=== PATIENT | female | born 1940 | race Caucasian/White ===

== ENCOUNTER 2020-03-01 11:46 | Outpatient (REF) | payer MEDICARE, OTHER, SELFPAY ==
[2020-03-01 12:45] LABS: Aspartate Amino Transferase 15 U/L (5-31); Cholesterol 201 mg/dL; HDL Cholesterol 47 mg/dL; LDL Cholesterol Calculated 133 mg/dl; Triglycerides 109 mg/dL
== END 2020-03-01 11:47 | disposition home or self-care (01) ==
LOC: HO.HVNA 11:46
PROVIDERS: Visit Provider Internal Medicine Interventional Cardiology
DX: E78.5 Hyperlipidemia, unspecified (principal)
CPT/HCPCS: 80061; 84450

== ENCOUNTER 2020-05-18 09:26 | Inpatient (IN) | payer MEDICARE, OTHER, SELFPAY ==
[2020-05-18] VITALS (8 sets, daily range): BP systolic 111–142; BP diastolic 53–82; PULSE 78–91; RESP 16–24; TEMP 36.7–37.1; O2SAT 88–98
--- NOTE | 2020-05-18 09:35 | ECG_ITS ---
Test Reason : DIFFICULTY BREATHING Blood Pressure : / mmHG Vent. Rate : 101 BPM Atrial Rate : 101 BPM P-R Int : 144 ms QRS Dur : 084 ms QT Int : 354 ms P-R-T Axes : 039 -66 084 degrees QTc Int : 459 ms Sinus tachycardia Possible Left atrial enlargement Left axis deviation Inferior infarct , age undetermined Anteroseptal infarct (cited on or before 28-OCT-2018) Abnormal ECG When compared with ECG of 10-FEB-2020 02:58, Nonspecific T wave abnormality, worse in Lateral leads Referred By: Vicky Delaney Electronically Signed By:Arnie Noel
--- NOTE | 2020-05-18 09:38 | ED_ITS ---
HPI - SOB/Dyspnea General Chief Complaint: Dyspnea Stated Complaint: diff breathing x1 week Time Seen by Provider: 05/18/20 09:34 Source: patient and EMS Mode of arrival: EMS Limitations: no limitations History of Present Illness HPI Narrative: 81 yo female with COPD, sp AVR with TAVR, HTN - here with 1 week of shortness of breath following a fall no trauma - became dizzy EMS found 89% on RA by EMS MD elicited complaint: shortness of breath and cough Pertinent past history: COPD Onset (ago): week(s) (1) Context: trauma/injury (after fall but no reported injuries and no head strike) Timing: constant Severity: moderate Exacerbating factors: exertion (cannot walk to her bathroom) Relieving factors: oxygen Known history of: COPD Associated symptoms: denies other symptoms Treatment prior to arrival: oxygen Related Data Home Medications Medication Instructions Recorded Confirmed amlodipine 2.5 mg PO DAILY 05/18/20 05/18/20 aspirin 81 mg PO DAILY 05/18/20 05/18/20 calcium carbonate-vitamin D3 1 tab PO DAILY 05/18/20 05/18/20 [Calcium 500 + D] ezetimibe 10 mg PO DAILY 05/18/20 05/18/20 levothyroxine 100 mcg PO DAILY 05/18/20 05/18/20 lorazepam 1 mg PO BEDTIME PRN 05/18/20 05/18/20 metoprolol succinate 50 mg PO DAILY 05/18/20 05/18/20 sertraline 200 mg PO QAM 05/18/20 05/18/20 umeclidinium-vilanterol [Anoro 1 puff INHALATION DAILY 05/18/20 05/18/20 Ellipta] Allergies Allergy/AdvReac Type Severity Reaction Status Date / Time No Known Allergies Allergy Verified 05/18/20 09:46 [No Known Allergies*] Review of Systems Review of Systems: Constitutional : No Fever, No Chills ENT/Mouth : No sore throat, No Rhinorrhea, No Swallowing Difficulty Eyes: No Eye Pain, No Swelling, No Redness Cardiovascular : No Chest Pain, positive SOB, No Orthopnea, no Edema Respiratory : No Cough, No Sputum, No Wheezing, positive dyspnea Gastrointestinal : No Nausea, No Vomiting, No Diarrhea, No abdominal Pain, No Hematochezia, No Melena Genitourinary : No Dysuria, No Urinary Frequency, No Hematuria Musculoskeletal : No joint pain, No Myalgias Skin : No Skin Lesions, No rash Neuro : pos Weakness, No Numbness, No Dizziness, No Headache Psych : No Anxiety/Panic, No Depression Heme/Lymph: No Bruising, No Lymphadenopathy Endocrine : No Polyuria, No Polydipsia All other systems reviewed and are negative [facility] Past Medical History Attestation statement: The following information was validated with the patient. Medical History (Updated 05/18/20 @ 12:17 by Vicky Delaney DO) COPD (chronic obstructive pulmonary disease) HTN (hypertension) Hypothyroidism Surgical History (Updated 05/18/20 @ 09:42 by Vicky Delaney DO) S/P AVR Social History Social History (Updated 05/18/20 @ 09:43 by Vicky Delaney DO) Smoking Status: Former smoker Use of substances other than those prescribed or required for medical reasons: No Advance Directives: No Advance Directives Information Provided: No Physical Exam Vital Signs: Vital Signs: Last Vital Signs Temp 98.7 F 05/18/20 09:41 Pulse 81 05/18/20 11:04 Resp 20 05/18/20 09:41 BP 119/60 05/18/20 11:04 Pulse Ox 97 05/18/20 11:04 Body Mass Index 30.0 Appearance: Alert. Oriented X3. Mild acute distress. Eyes: Pupils equal, round and reactive to light. ENT: Pharynx normal. Neck: Normal inspection. Neck supple. CVS: Normal heart rate and rhythm. Pulses normal. Respiratory: Mild respiratory distress tachypnea and retractions. Breath sounds diminished throughout scant end exp wheezes Abdomen: Soft and nontender. Skin: Skin warm and dry. Normal skin color. Normal skin turgor. Extremities: No lower extremity edema. No calf ttp Neuro: Oriented X 3. No motor deficit. No sensory deficit. Course Course Course Narrative: ddimer elevated CTA PE ordered already treated for COPD and bronchitis, still desats to 89% off O2, will need admission for further management MDM - SOB/Dyspnea MDM Narrative Medical decision making narrative: 80 yo female who notes last week she became dizzy and fell to the ground did not hit head or have LOC denies rib pain or trauma but notes since then she hasn't felt well and c/o shortness of breath and cough - will need labs, cultures, EKG, neb treatment, IV steroids, CXR, ddimer - if positive possible CTA, she is 89% on RA and does not use home O2, planned admit likely, start empiric antibiotics for COPD exacerbation Lab Data Result diagrams: 05/18/20 10:25 05/18/20 10:25 Labs: Lab Results 05/18/20 05/18/20 05/18/20 Range/Units 09:54 10:25 10:25 WBC 6.7 (4.8-10.8) X10*3/uL RBC 4.51 (4.20-5.50) X10*6/uL Hgb 12.1 (12.0-16.0) g/dl Hct 38.3 (37-47) % MCV 84.9 (80-98) fL MCH 26.8 L (27.0-33.0) pg MCHC 31.6 (31.0-35.0) g/dl RDW 14.4 (11.0-16.0) % Plt Count 144 L (160-400) X10*3/uL MPV 10.8 (9.4-12.3) fL Immature Gran % (Auto) 0.3 (0.0-0.4) % Neut % (Auto) 82.1 H (45-73) % Lymph % (Auto) 13.4 L (20-40) % [place] % (Auto) 4.2 (2-11) % Eos % (Auto) 0.0 (0-4) % Baso % (Auto) 0.0 (0-2) % Lymph # (Auto) 0.9 L (1.2-4.9) X10*3/uL [place] # (Auto) 0.3 (0.1-1.2) X10*3/uL Eos # (Auto) 0.0 (0.0-0.4) X10*3/uL Baso # (Auto) 0.0 (0.0-0.2) X10*3/uL Abs Immat Gran (auto) 0.02 (0.00-0.03) X10*3/uL Absolute Neuts (auto) 5.5 (2.0-8.3) X10*3/uL Absolute Nucleated RBC 0.000 (0.0-0.012) X10*3/uL Nucleated RBC % (auto) 0.0 (0.0-0.2) /100WBC PT 12.8 (10.8-13.0) SEC INR 1.1 (0.9-1.1) APTT 30.7 (24.1-38.0) SEC D-Dimer 440 NG/ML VBG pH (7.32-7.43) VBG pCO2 mmhg VBG pO2 mmhg VBG HCO3 mmol/L VBG O2 Saturation % VBG Base Excess mmol/L Sodium (135-145) mmol/L Potassium (3.3-5.1) mmol/l Chloride (96-108) mmol/L Carbon Dioxide (22-29) mmol/L Anion Gap (12-20) BUN (9-16) mg/dL Creatinine (0.5-1.4) mg/dL Estim Creat Clear Calc Estimated GFR Random Glucose (60-115) mg/dL Lactic Acid (0.5-2.0) mmol/L Calcium (8.4-10.2) mg/dL Magnesium (1.6-2.6) mg/dL Ferritin (10-250) ng/mL Total Bilirubin (0.0-1.0) mg/dL Direct Bilirubin (0.0-0.5) mg/dL AST (5-31) U/L ALT (0-31) U/L Alkaline Phosphatase (39-117) U/L Lactate Dehydrogenase (122-220) U/L Troponin I High Sens (<3.5-17.0) ng/L B-Natriuretic Peptide (<100) pg/mL Total Protein (6.5-8.0) g/dL Albumin (3.5-5.0) g/dL Lipase (8-78) U/L Procalcitonin ng/mL Coronavirus (PCR) NEGATIVE (Negative) Influenza Type A (PCR) NEGATIVE (Negative) Influenza Type B (PCR) NEGATIVE (Negative) RSV RNA Qual (PCR) NEGATIVE (Negative) 05/18/20 05/18/20 05/18/20 Range/Units 10:25 10:25 10:25 WBC (4.8-10.8) X10*3/uL RBC (4.20-5.50) X10*6/uL Hgb (12.0-16.0) g/dl Hct (37-47) % MCV (80-98) fL MCH (27.0-33.0) pg MCHC (31.0-35.0) g/dl RDW (11.0-16.0) % Plt Count (160-400) X10*3/uL MPV (9.4-12.3) fL Immature Gran % (Auto) (0.0-0.4) % Neut % (Auto) (45-73) % Lymph % (Auto) (20-40) % [place] % (Auto) (2-11) % Eos % (Auto) (0-4) % Baso % (Auto) (0-2) % Lymph # (Auto) (1.2-4.9) X10*3/uL [place] # (Auto) (0.1-1.2) X10*3/uL Eos # (Auto) (0.0-0.4) X10*3/uL Baso # (Auto) (0.0-0.2) X10*3/uL Abs Immat Gran (auto) (0.00-0.03) X10*3/uL Absolute Neuts (auto) (2.0-8.3) X10*3/uL Absolute Nucleated RBC (0.0-0.012) X10*3/uL Nucleated RBC % (auto) (0.0-0.2) /100WBC PT (10.8-13.0) SEC INR (0.9-1.1) APTT (24.1-38.0) SEC D-Dimer NG/ML VBG pH (7.32-7.43) VBG pCO2 mmhg VBG pO2 mmhg VBG HCO3 mmol/L VBG O2 Saturation % VBG Base Excess mmol/L Sodium 140 (135-145) mmol/L Potassium 4.0 (3.3-5.1) mmol/l Chloride 96 (96-108) mmol/L Carbon Dioxide 34 H (22-29) mmol/L Anion Gap 14 (12-20) BUN 19 H (9-16) mg/dL Creatinine 1.05 (0.5-1.4) mg/dL Estim Creat Clear Calc 45.0 Estimated GFR 51 Random Glucose 122 H (60-115) mg/dL Lactic Acid 1.0 (0.5-2.0) mmol/L Calcium 8.4 (8.4-10.2) mg/dL Magnesium 2.0 (1.6-2.6) mg/dL Ferritin 94 (10-250) ng/mL Total Bilirubin 0.6 (0.0-1.0) mg/dL Direct Bilirubin 0.2 (0.0-0.5) mg/dL AST 12 (5-31) U/L ALT 8 (0-31) U/L Alkaline Phosphatase 66 (39-117) U/L Lactate Dehydrogenase 197 (122-220) U/L Troponin I High Sens 24.2 H (<3.5-17.0) ng/L B-Natriuretic Peptide 705 H (<100) pg/mL Total Protein 6.5 (6.5-8.0) g/dL Albumin 3.9 (3.5-5.0) g/dL Lipase 21 (8-78) U/L Procalcitonin ng/mL Coronavirus (PCR) (Negative) Influenza Type A (PCR) (Negative) Influenza Type B (PCR) (Negative) RSV RNA Qual (PCR) (Negative) 05/18/20 05/18/20 Range/Units 10:25 10:25 WBC (4.8-10.8) X10*3/uL RBC (4.20-5.50) X10*6/uL Hgb (12.0-16.0) g/dl Hct (37-47) % MCV (80-98) fL MCH (27.0-33.0) pg MCHC (31.0-35.0) g/dl RDW (11.0-16.0) % Plt Count (160-400) X10*3/uL MPV (9.4-12.3) fL Immature Gran % (Auto) (0.0-0.4) % Neut % (Auto) (45-73) % Lymph % (Auto) (20-40) % [place] % (Auto) (2-11) % Eos % (Auto) (0-4) % Baso % (Auto) (0-2) % Lymph # (Auto) (1.2-4.9) X10*3/uL [place] # (Auto) (0.1-1.2) X10*3/uL Eos # (Auto) (0.0-0.4) X10*3/uL Baso # (Auto) (0.0-0.2) X10*3/uL Abs Immat Gran (auto) (0.00-0.03) X10*3/uL Absolute Neuts (auto) (2.0-8.3) X10*3/uL Absolute Nucleated RBC (0.0-0.012) X10*3/uL Nucleated RBC % (auto) (0.0-0.2) /100WBC PT (10.8-13.0) SEC INR (0.9-1.1) APTT (24.1-38.0) SEC D-Dimer NG/ML VBG pH 7.32 (7.32-7.43) VBG pCO2 65 mmhg VBG pO2 84 mmhg VBG HCO3 33 mmol/L VBG O2 Saturation 96.0 % VBG Base Excess 5.1 mmol/L Sodium (135-145) mmol/L Potassium (3.3-5.1) mmol/l Chloride (96-108) mmol/L Carbon Dioxide (22-29) mmol/L Anion Gap (12-20) BUN (9-16) mg/dL Creatinine (0.5-1.4) mg/dL Estim Creat Clear Calc Estimated GFR Random Glucose (60-115) mg/dL Lactic Acid (0.5-2.0) mmol/L Calcium (8.4-10.2) mg/dL Magnesium (1.6-2.6) mg/dL Ferritin (10-250) ng/mL Total Bilirubin (0.0-1.0) mg/dL Direct Bilirubin (0.0-0.5) mg/dL AST (5-31) U/L ALT (0-31) U/L Alkaline Phosphatase (39-117) U/L Lactate Dehydrogenase (122-220) U/L Troponin I High Sens (<3.5-17.0) ng/L B-Natriuretic Peptide (<100) pg/mL Total Protein (6.5-8.0) g/dL Albumin (3.5-5.0) g/dL Lipase (8-78) U/L Procalcitonin 0.04 ng/mL Coronavirus (PCR) (Negative) Influenza Type A (PCR) (Negative) Influenza Type B (PCR) (Negative) RSV RNA Qual (PCR) (Negative) ECG Data Attestation: I personally reviewed and interpreted this ECG as follows: ECG interpretation date: 05/18/20 ECG interpretation time: 10:42 Interpretation: Rate: 101 Rhythm: sinus tachycardia Benoit: left Normal P waves. Normal SIL. Normal QRS complex. ST T wave : nonspecific, no LILO qTC: normal prior studies: no acute ischemia The study has been interpreted contemporaneously by me. . Discharge Plan Discharge Clinical Impression: Acute exacerbation of chronic obstructive airways disease, Bronchitis, Hypoxia Patient Disposition: Admitted As Inpatient Prescriptions: No Action metoprolol succinate 50 mg tablet extended release 24 hr 50 mg PO DAILY RF: 0 sertraline 100 mg tablet 200 mg PO QAM RF: 0 amlodipine 2.5 mg tablet 2.5 mg PO DAILY RF: 0 levothyroxine 100 mcg tablet 100 mcg PO DAILY RF: 0 lorazepam 1 mg tablet 1 mg PO BEDTIME PRN (Reason: Sleep) RF: 0 ezetimibe 10 mg tablet 10 mg PO DAILY RF: 0 Anoro Ellipta 62.5-25 mcg/actuation blister with device 1 puff inhalation DAILY RF: 0 aspirin 81 mg Tablet,Chewable 81 mg PO DAILY RF: 0 calcium carbonate-vitamin D3 [Calcium 500 + D] 500 mg(1,250mg) -400 unit Tablet,Chewable 1 tab PO DAILY RF: 0
--- NOTE | 2020-05-18 09:39 | XR_ITS ---
EXAMINATION: XR CHEST CLINICAL INFORMATION: Dyspnea. COMPARISON: Chest 02/10/2020. TECHNIQUE: Frontal view of the chest was obtained. FINDINGS: There is increase interstitial markings in both lungs with abutment bandlike atelectasis right lower lobe. There is aortic valve stent noted. The heart size and vascularity is normal. No gross bony abnormality. XR/XR chest 1V IMPRESSION: Bilateral increase interstitial markings suggestive of interstitial pneumonitis, less likely edema. Bandlike atelectasis in right lower lobe.
[2020-05-18] MEDS: Albuterol Sulfate (0.083%) 2.5 MG/3 ML VIAL.NEB 5 MG INHALE (09:49)
[2020-05-18 10:34] LABS: MANUAL DIFF FLAG NO
[2020-05-18 10:38] LABS: HCO3 VBG 33 mmol/L; PCO2 VBG 65 mmhg; PO2 VBG 84 mmhg; pH VBG 7.32 (7.32-7.43)
[2020-05-18 10:39] LABS: Base Excess VBG 5.1 mmol/L; Blood Gas Serial # 5414
[2020-05-18 10:42] LABS: Influenza A PCR NEGATIVE (Negative); Influenza B PCR NEGATIVE (Negative); Resp Syncy Virus RNA Qual PCR NEGATIVE (Negative); SARS COV2 PCR INHOUSE NEGATIVE (Negative)
[2020-05-18 10:43] LABS: INTERNATIONAL NORM RATIO 1.1 (0.9-1.1); Prothrombin Time 12.8 SEC (10.8-13.0)
[2020-05-18 10:46] LABS: D Dimer 440 NG/ML; Partial Thromboplastin Time 30.7 SEC (24.1-38.0)
[2020-05-18 10:49] LABS: Hematocrit 38.3 % (37-47); Hemoglobin 12.1 g/dl (12.0-16.0); Imm Gran Abs Auto 0.02 X10*3/uL (0.00-0.03); Imm Gran Pct Auto 0.3 % (0.0-0.4); Lymphocytes Absolute Auto 0.9 X10*3/uL (1.2-4.9); Lymphocytes Percent Auto 13.4 % (20-40); Mean Corpuscular HGB Conc 31.6 g/dl (31.0-35.0); Mean Corpuscular Hemoglobin 26.8 pg (27.0-33.0); Mean Corpuscular Volume 84.9 fL (80-98); Mean Platelet Volume 10.8 fL (9.4-12.3); Monocytes Absolute Auto 0.3 X10*3/uL (0.1-1.2); Monocytes Percent Auto 4.2 % (2-11); Neutrophils Absolute Auto 5.5 X10*3/uL (2.0-8.3); Neutrophils Percent Auto 82.1 % (45-73); Platelet Count 144 X10*3/uL (160-400); Red Blood Count 4.51 X10*6/uL (4.20-5.50); Red Cell Distribution Width 14.4 % (11.0-16.0); White Blood Count 6.7 X10*3/uL (4.8-10.8)
--- NOTE | 2020-05-18 10:54 | CT_ITS ---
EXAMINATION: CT ANGIOGRAM OF THE CHEST WITH AND WITHOUT CONTRAST (CT PULMONARY ANGIOGRAM FOR PE) CLINICAL INFORMATION: Reason for Exam dyspnea elevated ddimer COMPARISON: Previous chest x-ray most recent from earlier today and chest CTA October 2018 TECHNIQUE: Prior to contrast administration, noncontrast localization images were obtained. Subsequently, multidetector volumetric imaging was performed from the thoracic inlet to below the diaphragms following the administration of 65 mL Omnipaque 350 intravenous contrast. No contrast reaction reported Sagittal, coronal, and MIP oblique sagittal reformatted images were obtained on the CT workstation, uploaded to PACS, and reviewed. This CT examination was performed using dose optimization techniques as appropriate, variously including the following: *Automated exposure control *Adjustment of mA and/or kV according to patient size (this includes techniques or standardized protocols for targeted exams where dose is matched to indication/reason for exam; i.e. extremities or head) *Use of iterative reconstruction technique Total exam dose-length product 268 mGy-cm FINDINGS: QUALITY OF STUDY/CONTRAST BOLUS: Satisfactory. PULMONARY ARTERIES: No central or segmental pulmonary emboli. THORACIC AORTA: No aneurysm or dissection. LUNG: There is evidence of mild centrilobular emphysema. There multiple small 1-2 mm upper lobe or a GDS or semisolid nodules area this may represent airways disease, respiratory bronchiolitis. Differential would include hypersensitivity pneumonitis or changes from old granulomatous disease. There is a 5 mm groundglass attenuation right upper lobe nodule axial image 163 series 8. This is unchanged from 2019 exam. Mild bilateral lower lobe bronchiectasis and bronchial wall thickening. There is some bronchial soft tissue opacification or mucus plugging seen in the right lower lobe. There is right lower lobe atelectasis or small infiltrate in the posterior basal right lower lobe. There is minimal subsegmental atelectasis in the posterior basal left lower lobe. PLEURA: No pleural effusion or pneumothorax. MEDIASTINUM: Upper normal heart size. Aortic valve stent graft. Mild coronary artery calcification. No pericardial effusion. Normal caliber thoracic aorta. No hilar or mediastinal lymphadenopathy. No evidence of septal bowing or right heart strain. Small calcified right thyroid nodules. CHEST WALL/AXILLA: No axillary or internal mammary lymphadenopathy. OSSEOUS STRUCTURES: There is a mild T7 vertebral body compression fracture that appears unchanged. UPPER ABDOMEN: The spleen is not completely imaged but may be prominent. No reflux of contrast into the hepatic veins to suggest elevated right heart pressures. CT/CT angio chest PE protocol IMPRESSION: No evidence of pulmonary embolism. Mild emphysema. Stable 5 mm groundglass attenuation right upper lobe nodule. Bilateral lower lobe bronchiectasis and bronchial wall thickening and some bronchial soft tissue opacification or mucus plugging in the right lower lobe. Right lower lobe atelectasis/small infiltrate. Aortic valve stent graft and slightly enlarged heart and coronary artery calcification. VTE: negative
[2020-05-18] MEDS: methylPREDNISolone Sod Succ/PF 125 MG/2 ML VIAL 60 MG IVPUSH (10:57)
[2020-05-18] MEDS: Doxycycline Hyclate 100 MG in 0.9 % Sodium Chloride 250 ML 166.67 MG IV (10:58)
[2020-05-18] MEDS: cefTRIAXone sodium 1 GM in 0.9 % Sodium Chloride 50 ML IV (10:58)
[2020-05-18 11:00] LABS: Alanine Aminotransferase 8 U/L (0-31); Albumin Level 3.9 g/dL (3.5-5.0); Alkaline Phosphatase 66 U/L (39-117); Anion Gap 14 (12-20); Aspartate Amino Transferase 12 U/L (5-31); Bilirubin Direct 0.2 mg/dL (0.0-0.5); Bilirubin Total 0.6 mg/dL (0.0-1.0); Blood Urea Nitrogen 19 mg/dL (9-16); Calcium 8.4 mg/dL (8.4-10.2); Carbon Dioxide 34 mmol/L (22-29); Chloride 96 mmol/L (96-108); Estimated Glomerular Filt Rate 51; Glucose Random 122 mg/dL (60-115); Lactate Dehydrogenase 197 U/L (122-220); Lipase 21 U/L (8-78); Sodium 140 mmol/L (135-145); Total Protein 6.5 g/dL (6.5-8.0)
--- NOTE | 2020-05-18 11:03 | PC.NURSE ---
MEDICATED PER ORDERS AFTER LABS AND BC X 2. VITALS UPDATED
[2020-05-18 11:08] LABS: B Type Natriuretic Peptide 705 pg/mL (<100); Troponin-I High Sensitivity 24.2 ng/L (<3.5-17.0)
[2020-05-18 11:20] LABS: Ferritin 94 ng/mL (10-250)
[2020-05-18 11:27] LABS: Procalcitonin 0.04 ng/mL
[2020-05-18] MEDS: iohexoL 350 MG/ML 100 ML INFUS..BTL IV (11:49)
[2020-05-18] MEDS: Furosemide 20 MG/2 ML VIAL IVPUSH (12:19)
--- NOTE | 2020-05-18 12:20 | P.HPHOSP_ITS ---
History of Present Illness Date of Service: 05/18/20 <Sonia Anderson NP - Last Filed: 05/18/20 13:17> Chief Complaint: Shortness of breath <Sonia Anderson NP - Last Filed: 05/18/20 13:17> 80 year old women presenting with worsening shortness of breath over the last several days. Mostly with exertion. She has COPD and a history of AVR. She reported That she took a fall on new s [place]. And since then she has had increased shortness of breath especially with exertion. She denied recent illness, fever, chills, nausea, vomiting, sick contacts. She does not have any history of congestive heart failure. BNP was noted to be elevated at 705. Chest CTA showing bronchiectases. Upon arrival apparently her oxygen saturation was 89% on room air. This did improve with oxygen therapy. In the ER, she was given Solu-Medrol, albuterol, ceftriaxone, doxycycline, IV Lasix. She will be admitted for further management and treatment of acute CHF. <Sonia Anderson NP - Last Filed: 05/18/20 13:17> Review of Systems Review of Systems: Denies any recent fever chills or decrease in appetite respiratory See HPI cardiovascular is adjustment of any PND or edema gastrointestinal denies any dysphagia abdominal pain nausea vomiting or diarrhea genitourinary denies any dysuria frequency or hematuria musculoskeletal denies any joint pain or swelling neuropsych denies any weakness or seizures all other systems reviewed are negative <Sonia Anderson NP - Last Filed: 05/18/20 13:17> [facility] Medical History: Medical History (Updated 05/28/20 @ 00:00 by Georgina Castaneda) COPD (chronic obstructive pulmonary disease) HTN (hypertension) Hypothyroidism <Sonia Anderson NP - Last Filed: 05/18/20 13:17> Pertinent family history: No cardiac disease <Sonia Anderson NP - Last Filed: 05/18/20 13:17> Surgical History: Surgical History (Updated 05/18/20 @ 12:22 by Sonia Anderson NP) S/P AVR <Sonia Anderson NP - Last Filed: 05/18/20 13:17> Social History: Social History (Updated 05/18/20 @ 09:43 by Vicky Delaney DO) Household Members: Family Housing: House Alcohol intake: never Smoking Status: Former smoker Second Hand Smoke Exposure: No service: No Current occupational status: retired <Sonia Anderson NP - Last Filed: 05/18/20 13:17> Meds Allergies/Adverse reactions: Allergies Allergy/AdvReac Type Severity Reaction Status Date / Time No Known Allergies Allergy Verified 05/18/20 09:46 [No Known Allergies*] <Sonia Anderson NP - Last Filed: 05/18/20 13:17> Home medications: Home Medications Medication Instructions Recorded Confirmed Type Anoro Ellipta 1 puff INHALATION DAILY 05/18/20 05/18/20 History amlodipine 2.5 mg PO DAILY 05/18/20 05/18/20 History aspirin 81 mg PO DAILY 05/18/20 05/18/20 History calcium carbonate-vitamin D3 1 tab PO DAILY 05/18/20 05/18/20 History [Calcium 500 + D] ezetimibe 10 mg PO DAILY 05/18/20 05/18/20 History levothyroxine 100 mcg PO DAILY 05/18/20 05/18/20 History lorazepam 1 mg PO BEDTIME PRN 05/18/20 05/18/20 History metoprolol succinate 50 mg PO DAILY 05/18/20 05/18/20 History sertraline 200 mg PO QAM 05/18/20 05/18/20 History <Sonia Anderson NP - Last Filed: 05/18/20 13:17> Physical Exam Vital Signs and Narrative: Vital Signs: Last Vital Signs Temp 98.7 F 05/18/20 09:41 Pulse 81 05/18/20 11:04 Resp 20 05/18/20 09:41 BP 119/60 05/18/20 11:04 Pulse Ox 97 05/18/20 11:04 Body Mass Index 30.0 <Sonia Anderson NP - Last Filed: 05/18/20 13:17> Appearing in no acute distress head is normocephalic atraumatic eyes pupils are PERRLA sclera is anicteric mouth throat mucous membranes are intact and moist neck is supple no lymphadenopathy, no JVD noted lung sounds some rales at the bases heart regular rate rhythm, clear S1, S2, +1 pitting edema positive bowel sounds, abdomen is soft, nontender neuro patient is alert x3, no focal deficits <Sonia Anderson NP - Last Filed: 05/18/20 13:17> Results Labs CBC and Chem 7: : 05/19/20 05:27 05/20/20 11:14 <Sonia Anderson NP - Last Filed: 05/18/20 13:17> Labs: Laboratory Results - last 24 hr 05/18/20 05/18/20 05/18/20 09:54 10:25 10:25 MCV 84.9 MCH 26.8 L MCHC 31.6 RDW 14.4 Plt Count 144 L MPV 10.8 Immature Gran % (Auto) 0.3 Neut % (Auto) 82.1 H Lymph % (Auto) 13.4 L [place] % (Auto) 4.2 Eos % (Auto) 0.0 Baso % (Auto) 0.0 Lymph # (Auto) 0.9 L [place] # (Auto) 0.3 Eos # (Auto) 0.0 Baso # (Auto) 0.0 Abs Immat Gran (auto) 0.02 Absolute Neuts (auto) 5.5 Absolute Nucleated RBC 0.000 Nucleated RBC % (auto) 0.0 PT 12.8 INR 1.1 APTT 30.7 D-Dimer 440 VBG pH VBG pCO2 VBG pO2 VBG HCO3 VBG O2 Saturation VBG Base Excess Anion Gap Estim Creat Clear Calc Estimated GFR Random Glucose Lactic Acid Calcium Magnesium Ferritin Total Bilirubin Direct Bilirubin AST ALT Alkaline Phosphatase Lactate Dehydrogenase Troponin I High Sens B-Natriuretic Peptide Total Protein Albumin Lipase Procalcitonin Coronavirus (PCR) NEGATIVE Influenza Type A (PCR) NEGATIVE Influenza Type B (PCR) NEGATIVE RSV RNA Qual (PCR) NEGATIVE 05/18/20 05/18/20 05/18/20 10:25 10:25 10:25 MCV MCH MCHC RDW Plt Count MPV Immature Gran % (Auto) Neut % (Auto) Lymph % (Auto) [place] % (Auto) Eos % (Auto) Baso % (Auto) Lymph # (Auto) [place] # (Auto) Eos # (Auto) Baso # (Auto) Abs Immat Gran (auto) Absolute Neuts (auto) Absolute Nucleated RBC Nucleated RBC % (auto) PT INR APTT D-Dimer VBG pH VBG pCO2 VBG pO2 VBG HCO3 VBG O2 Saturation VBG Base Excess Anion Gap 14 Estim Creat Clear Calc 45.0 Estimated GFR 51 Random Glucose 122 H Lactic Acid 1.0 Calcium 8.4 Magnesium 2.0 Ferritin 94 Total Bilirubin 0.6 Direct Bilirubin 0.2 AST 12 ALT 8 Alkaline Phosphatase 66 Lactate Dehydrogenase 197 Troponin I High Sens 24.2 H B-Natriuretic Peptide 705 H Total Protein 6.5 Albumin 3.9 Lipase 21 Procalcitonin Coronavirus (PCR) Influenza Type A (PCR) Influenza Type B (PCR) RSV RNA Qual (PCR) 05/18/20 05/18/20 10:25 10:25 MCV MCH MCHC RDW Plt Count MPV Immature Gran % (Auto) Neut % (Auto) Lymph % (Auto) [place] % (Auto) Eos % (Auto) Baso % (Auto) Lymph # (Auto) [place] # (Auto) Eos # (Auto) Baso # (Auto) Abs Immat Gran (auto) Absolute Neuts (auto) Absolute Nucleated RBC Nucleated RBC % (auto) PT INR APTT D-Dimer VBG pH 7.32 VBG pCO2 65 VBG pO2 84 VBG HCO3 33 VBG O2 Saturation 96.0 VBG Base Excess 5.1 Anion Gap Estim Creat Clear Calc Estimated GFR Random Glucose Lactic Acid Calcium Magnesium Ferritin Total Bilirubin Direct Bilirubin AST ALT Alkaline Phosphatase Lactate Dehydrogenase Troponin I High Sens B-Natriuretic Peptide Total Protein Albumin Lipase Procalcitonin 0.04 Coronavirus (PCR) Influenza Type A (PCR) Influenza Type B (PCR) RSV RNA Qual (PCR) <Sonia Anderson NP - Last Filed: 05/18/20 13:17> Imaging Radiologist's Impressions: Impressions Chest X-Ray 05/18/20 09:39 IMPRESSION: Bilateral increase interstitial markings suggestive of interstitial pneumonitis, less likely edema. Bandlike atelectasis in right lower lobe. Chest CTA 05/18/20 10:54 IMPRESSION: No evidence of pulmonary embolism. Mild emphysema. Stable 5 mm groundglass attenuation right upper lobe nodule. Bilateral lower lobe bronchiectasis and bronchial wall thickening and some bronchial soft tissue opacification or mucus plugging in the right lower lobe. Right lower lobe atelectasis/small infiltrate. Aortic valve stent graft and slightly enlarged heart and coronary artery calcification. VTE: negative <Sonia Anderson NP - Last Filed: 05/18/20 13:17> Assessment and Plan (1) Acute exacerbation of chronic obstructive airways disease: Status: Resolved <Sonia Anderson NP - Last Filed: 05/18/20 13:17> (2) Bronchitis: Status: Resolved <Sonia Anderson NP - Last Filed: 05/18/20 13:17> (3) Hypoxia: Status: Resolved <Sonia Anderson NP - Last Filed: 05/18/20 13:17> 80 year old women admitted with COPD, Acute CHF Acute respiratory failure secondary to COPD/ CHF. Resolved with oxygen therapy. Will treat with azithromycin, steroid, duonebs, continue oxygen therapy. Congestive heart failure. No history in the past. IV Lasix, Cardiology to follow, echocardiogram. Hypertension. Stable blood pressure. Continue Amlodipine and metoprolol. Hypothyroidism. Levothyroxine. Depression/anxiety. Cotninue ativan and zoloft. DVT prophylaxis with Lovenox. Discussed with Dr. Kinney Full code <Sonia Anderson NP - Last Filed: 05/18/20 13:17> (4) COPD (chronic obstructive pulmonary disease): Status: Inactive <Sonia Anderson NP - Last Filed: 05/18/20 13:17>
--- NOTE | 2020-05-18 16:58 | PC.NURSE ---
Pt resting in stretcher at this time- pending bed assignment. Pt is aox3, in no apparent distress, offering no complaints other than bed assignment wait. Pt given coffee as requested, dinner ordered. VSS- remains in 3L nasal cannula.
--- NOTE | 2020-05-18 17:45 | PC.NURSE ---
Pt becoming slightly agitated r/t room assignment, RN electrician substation supervisor contacted, pending room, attempted to reasurre and make pt comfortable.. Pt given dinner tray- pleased.
--- NOTE | 2020-05-18 17:48 | PM.EVENT ---
Event Note Date of Service: 05/18/20 Event Note: Addendum to H and P by Mid-level Provider I saw and examined the patient and participated in the parks portion of the E/M service. I agree with the history and exam as documented by MINERAL SURVEYING TECHNICIAN. Patient likely has acute resp failure d/t chf, and copd Will admit for management and treatment and work up. Otherwise, I agree with assessment and plan as outlined in the H and P.
--- NOTE | 2020-05-18 18:03 | PC.NURSE ---
ICU called for report- unable to give report at this time. awaiting call back
--- NOTE | 2020-05-18 18:32 | PC.NURSE ---
x2 call for report.
[2020-05-18] MEDS: 0.9 % Sodium Chloride Flush 3 ML SYRINGE IVFLUSH ×2 (19:37→20:40)
[2020-05-18] MEDS: Azithromycin 500 MG in 0.9 % Sodium Chloride 250 ML 125 MG IV (19:37)
[2020-05-18] MEDS: Furosemide 40 MG/4 ML VIAL IVPUSH (19:37)
[2020-05-18] MEDS: Enoxaparin Sodium 40 MG/0.4 ML SYRINGE SUBCUT (19:38)
[2020-05-18] MEDS: LORazepam 1 MG TABLET PO (20:40)
[2020-05-19] VITALS (10 sets, daily range): BP systolic 96–125; BP diastolic 52–71; PULSE 70–87; RESP 18–23; TEMP 36–36.6; O2SAT 92–96
[2020-05-19] MEDS: Levothyroxine Sodium 100 MCG TABLET PO (05:32)
[2020-05-19 05:46] LABS: Hematocrit 37.3 % (37-47); Hemoglobin 11.8 g/dl (12.0-16.0); Imm Gran Abs Auto 0.06 X10*3/uL (0.00-0.03); Imm Gran Pct Auto 0.8 % (0.0-0.4); Lymphocytes Absolute Auto 0.5 X10*3/uL (1.2-4.9); Lymphocytes Percent Auto 6.5 % (20-40); Mean Corpuscular HGB Conc 31.6 g/dl (31.0-35.0); Mean Corpuscular Hemoglobin 26.9 pg (27.0-33.0); Mean Platelet Volume 10.6 fL (9.4-12.3); Monocytes Absolute Auto 0.2 X10*3/uL (0.1-1.2); Monocytes Percent Auto 3.1 % (2-11); Neutrophils Absolute Auto 6.7 X10*3/uL (2.0-8.3); Neutrophils Percent Auto 89.6 % (45-73); Platelet Count 154 X10*3/uL (160-400); Red Blood Count 4.39 X10*6/uL (4.20-5.50); Red Cell Distribution Width 14.2 % (11.0-16.0); SCAN SMEAR FLAG 1; White Blood Count 7.5 X10*3/uL (4.8-10.8)
[2020-05-19 05:49] LABS: MANUAL DIFF FLAG SCAN
[2020-05-19 06:09] LABS: SLIDE REVIEW VERIFIED
[2020-05-19 06:12] LABS: Anion Gap 14 (12-20); Blood Urea Nitrogen 23 mg/dL (9-16); Calcium 8.1 mg/dL (8.4-10.2); Carbon Dioxide 34 mmol/L (22-29); Chloride 96 mmol/L (96-108); Creatinine Clr Calc Pharmacy 46.3; Estimated Glomerular Filt Rate 52; Glucose Random 117 mg/dL (60-115); Potassium 4.7 mmol/l (3.3-5.1); Sodium 139 mmol/L (135-145)
[2020-05-19] MEDS: Ezetimibe 10 MG TABLET PO (08:16)
[2020-05-19] MEDS: amLODIPine Besylate 2.5 MG TABLET PO (08:16)
[2020-05-19] MEDS: Metoprolol Succinate ER 50 MG TAB.ER.24H PO (08:16)
[2020-05-19] MEDS: 0.9 % Sodium Chloride Flush 3 ML SYRINGE IVFLUSH ×3 (08:16→23:49)
[2020-05-19] MEDS: Aspirin 81 MG TAB.CHEW PO (08:16)
[2020-05-19] MEDS: Sertraline HCL 100 MG TABLET 200 MG PO (08:16)
[2020-05-19] MEDS: Furosemide 40 MG/4 ML VIAL IVPUSH (08:17)
--- NOTE | 2020-05-19 11:16 | PM.CNCAR ---
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 She is presenting with CABRALES over the last few days. She has no CP. She has not been coughing or has any fever. Admission workup including CT scan of the chest showed ground-glass changes and bronchial wall thickening. No clear signs of heart failure were noticed. She was started on treatment for COPD exacerbation. She was also given IV diuretics because she elevated BNP levels. She is saying she is feeling better. She has no chest discomfort or shortness of breath right now. Review of Systems Review of Systems: No symptoms right now [facility] Past Medical History Medical History (Updated 05/18/20 @ 12:17 by Vicky Delaney DO) COPD (chronic obstructive pulmonary disease) HTN (hypertension) Hypothyroidism Surgical History Surgical History (Updated 05/18/20 @ 12:22 by Sonia Anderson NP) S/P AVR Social History Social History (Updated 05/18/20 @ 09:43 by Vicky Delaney DO) Household Members: Family Housing: House Do you presently have visiting nurse or other home services: No Alcohol intake: never Smoking Status: Former smoker Smoked in Last 30 Days: No Patient Interested in Nicotine Replacement: No Patient Given Instructions on How to Stop Smoking: No Second Hand Smoke Exposure: No Use of substances other than those prescribed or required for medical reasons: No Currently Displaying Signs/Symptoms of Drug Intoxication Withdrawal: No Any prior treatment program specific to substance use: No Have you been hit, kicked, punched, or otherwise hurt by someone within the past year? If so, by whom?: No Do you feel safe in your current relationship?: No Is there a partner from a previous relationship who is making you feel unsafe now?: No Are you made to feel afraid or neglected: No Advance Directives: No Advance Directives Information Provided: No Do you have thoughts of harming others: None Do you have a plan to hurt others: No Plan Recently lost weight without trying: No Meds Allergies Allergy/AdvReac Type Severity Reaction Status Date / Time No Known Allergies Allergy Verified 05/18/20 09:46 [No Known Allergies*] Home Medications Medication Instructions Recorded Confirmed Type amlodipine 2.5 mg PO DAILY 05/18/20 05/18/20 History aspirin 81 mg PO DAILY 05/18/20 05/18/20 History calcium carbonate-vitamin D3 1 tab PO DAILY 05/18/20 05/18/20 History [Calcium 500 + D] ezetimibe 10 mg PO DAILY 05/18/20 05/18/20 History levothyroxine 100 mcg PO DAILY 05/18/20 05/18/20 History lorazepam 1 mg PO BEDTIME PRN 05/18/20 05/18/20 History metoprolol succinate 50 mg PO DAILY 05/18/20 05/18/20 History sertraline 200 mg PO QAM 05/18/20 05/18/20 History umeclidinium-vilanterol [Anoro 1 puff INHALATION DAILY 05/18/20 05/18/20 History Ellipta] Physical Exam Vital Signs: Vital Signs: Last Vital Signs Temp 96.8 F 05/19/20 07:52 Pulse 85 05/19/20 08:16 Resp 20 05/19/20 07:52 BP 121/58 L 05/19/20 08:16 Pulse Ox 92 05/19/20 08:00 Body Mass Index 30.0 Results Labs and Meds Result diagrams: 05/19/20 05:27 05/19/20 05:27 Lab results: Laboratory Results - last 24 hr 05/18/20 05/18/20 05/19/20 10:25 10:25 05:27 WBC 7.5 RBC 4.39 Hgb 11.8 L Hct 37.3 MCV 85.0 MCH 26.9 L MCHC 31.6 RDW 14.2 Plt Count 154 L MPV 10.6 Immature Gran % (Auto) 0.8 H Neut % (Auto) 89.6 H Lymph % (Auto) 6.5 L [place] % (Auto) 3.1 Eos % (Auto) 0.0 Baso % (Auto) 0.0 Lymph # (Auto) 0.5 L [place] # (Auto) 0.2 Eos # (Auto) 0.0 Baso # (Auto) 0.0 Abs Immat Gran (auto) 0.06 H Absolute Neuts (auto) 6.7 Absolute Nucleated RBC 0.000 Nucleated RBC % (auto) 0.0 Smear Tech's Comments VERIFIED Sodium Potassium Chloride Carbon Dioxide Anion Gap BUN Creatinine Estim Creat Clear Calc Estimated GFR Random Glucose Calcium Ferritin 94 Procalcitonin 0.04 05/19/20 05:27 WBC RBC Hgb Hct MCV MCH MCHC RDW Plt Count MPV Immature Gran % (Auto) Neut % (Auto) Lymph % (Auto) [place] % (Auto) Eos % (Auto) Baso % (Auto) Lymph # (Auto) [place] # (Auto) Eos # (Auto) Baso # (Auto) Abs Immat Gran (auto) Absolute Neuts (auto) Absolute Nucleated RBC Nucleated RBC % (auto) Smear Tech's Comments Sodium 139 Potassium 4.7 Chloride 96 Carbon Dioxide 34 H Anion Gap 14 BUN 23 H Creatinine 1.02 Estim Creat Clear Calc 46.3 Estimated GFR 52 Random Glucose 117 H Calcium 8.1 L Ferritin Procalcitonin Imaging Radiologist's impression: Impressions Chest CTA 05/18/20 10:54 IMPRESSION: No evidence of pulmonary embolism. Mild emphysema. Stable 5 mm groundglass attenuation right upper lobe nodule. Bilateral lower lobe bronchiectasis and bronchial wall thickening and some bronchial soft tissue opacification or mucus plugging in the right lower lobe. Right lower lobe atelectasis/small infiltrate. Aortic valve stent graft and slightly enlarged heart and coronary artery calcification. VTE: negative Assessment and Plan (1) Acute exacerbation of chronic obstructive airways disease: Status: Acute (2) Hypoxia: Status: Acute Pleasant 80-year-old female with background of COPD, aortic valve stenosis for which she underwent transcatheter aortic valve replacement in 2018, hypertension and hyperlipidemia who is presenting with shortness of breath. Clinical presentation is more consistent with COPD exacerbation. Her BNP was elevated on admission. Clinically she does not look volume overloaded to me. I think she should not get further IV diuretics. She seems quite euvolemic right now. She feels better. I think she can be on as needed diuretics at home. I think she should be treated for COPD exacerbation and as she improves she should go home and follow up with Dr. Friedman at [facility]. We will follow along with you. Thank you for allowing me to participate in the care of your patient. Please feel free to contact me if you have any questions.
--- NOTE | 2020-05-19 11:59 | HO.PM.IMPN ---
Subjective Subjective Date of Service: 05/19/20 Interval History: patient seen and examined at bedside reporting shortness of breath little improved Review of Systems Denies any recent fever chills or decrease in appetite respiratory See HPI cardiovascular sob gastrointestinal denies any dysphagia abdominal pain nausea vomiting or diarrhea genitourinary denies any dysuria frequency or hematuria musculoskeletal denies any joint pain or swelling neuropsych denies any weakness or seizures all other systems reviewed are negative Physical Exam Vital Signs: Vital Signs: Last Vital Signs Temp 97.5 F 05/19/20 11:22 Pulse 73 05/19/20 11:22 Resp 18 05/19/20 11:22 BP 97/58 L 05/19/20 11:22 Pulse Ox 93 05/19/20 11:22 Body Mass Index 30.0 Const: General: cooperative Resp: Auscultation: rales and wheezes Cardio: Rhythm: regular rhythm Heart sounds: S1 normal heart sound present and S2 normal heart sound present GI: Inspection: Yes normal to inspection Objective Data Current Medications Generic Name Dose Route Start Last Admin Trade Name Freq PRN Reason Stop Dose Admin Acetaminophen 650 mg 05/18/20 18:41 Acetaminophen 325 Mg Tablet PO Q6H PRN Pain, Mild (Pain Scale 1-3) Albuterol Sulfate 2.5 mg 05/18/20 18:41 Albuterol Sulfate (0.083%) 2.5 Mg/3 Ml Vial.Neb INHALE RQ4H PRN Wheezing Amlodipine Besylate 2.5 mg 05/19/20 09:00 05/19/20 08:16 Amlodipine Besylate 2.5 Mg Tablet PO 2.5 mg DAILY CHERELLE Administration Protocol Aspirin 81 mg 05/19/20 09:00 05/19/20 08:16 Aspirin 81 Mg Tab.Chew PO 81 mg DAILY CHERELLE Administration Ezetimibe 10 mg 05/19/20 09:00 05/19/20 08:16 Ezetimibe 10 Mg Tablet PO 10 mg DAILY CHERELLE Administration Enoxaparin Sodium 40 mg 05/18/20 20:00 05/18/20 19:38 Enoxaparin Sodium 40 Mg/0.4 Ml Syringe SUBCUT 40 mg Q24H CHERELLE Administration Azithromycin 500 mg/ Sodium 250 mls @ 125 mls/hr 05/18/20 20:00 05/18/20 20:40 Chloride IV Infused Q24H CHERELLE Infusion Levothyroxine Sodium 100 mcg 05/19/20 06:30 05/19/20 05:32 Levothyroxine Sodium 100 Mcg Tablet PO 100 mcg DAILY@0630 CHERELLE Administration Lorazepam 1 mg 05/18/20 18:41 05/18/20 20:40 Lorazepam 1 Mg Tablet PO 1 mg BEDTIME PRN Administration Sleep Methylprednisolone Sodium Succinate 40 mg 05/18/20 19:00 05/19/20 08:16 Methylprednisolone Sod Succ/Pf 40 Mg/Ml Vial IVPUSH 40 mg Q12H CHERELLE Administration Metoprolol Succinate 50 mg 05/19/20 09:00 05/19/20 08:16 Metoprolol Succinate Er 50 Mg Tab.Er.24h PO 50 mg DAILY CHERELLE Administration Protocol Ondansetron HCl 4 mg 05/18/20 18:41 Ondansetron Hcl 4 Mg/2 Ml Vial IVPUSH Q8H PRN Nausea and Vomiting Pharmacy Consult 1 each 05/18/20 09:34 Consult Rx Perform Med Rec MISCELLANE ONCE PRN Consult order Sertraline HCl 200 mg 05/19/20 09:00 05/19/20 08:16 Sertraline Hcl 100 Mg Tablet PO 200 mg DAILY CHERELLE Administration Sodium Chloride 3 ml 05/18/20 18:41 05/19/20 08:16 0.9 % Sodium Chloride Flush 3 Ml Syringe IVFLUSH 3 ml QSHIFT CHERELLE Administration Labs CBC & Chem 7: 05/19/20 05:27 05/19/20 05:27 Assessment and Plan (1) Acute exacerbation of chronic obstructive airways disease: Status: Acute (2) Bronchitis: Status: Acute (3) Hypoxia: Status: Acute Assessment and Plan: 80 year old women admitted with COPD, Acute CHF Acute respiratory failure secondary to COPD/ CHF continue oxygen supplementation COPD exacerbation continue oxygen supplementation continue nebulizer and steroids Congestive heart failure. history of severe aortic stenosis status post TAVR seen by Cardiology reconciled appears euvolemic will hold IV Lasix echocardiogram pending Hypertension. blood pressure on softer side Continue Amlodipine and metoprolol. if blood pressure dropped further will hold antihypertensive Hypothyroidism. Levothyroxine. Depression/anxiety. Cotninue ativan and zoloft. DVT prophylaxis with Lovenox.
--- NOTE | 2020-05-19 14:22 | MHC.CM.ED ---
Addendum entered by Shaila Conteh 05/19/20 15:43: No HCP on file. Original Note: Met with pt. Very pleasant and orientated woman. Her son lives with her and is very helpful. Shops and provides transportation. Currently has no services in the home. States she had [facility] several months ago for PT/long-term. States her HCP is Ketty Chahal and has copy at home. Except d/c home without services. Will re-evaluate when closer to d/c
[2020-05-19] MEDS: Albuterol Sulfate (0.083%) 2.5 MG/3 ML VIAL.NEB INHALE ×2 (16:17→20:05)
--- NOTE | 2020-05-19 18:41 | CA_ITS ---
Transthoracic Echocardiogram Patient (Last, First, Middle): Yokasta Huber, Gender: Female Date of : 1940 Age: 80 Procedure Date: 05/19/2020 Procedure Type: Transthoracic Echocardiogram Location: ICU Height: 162.56 cm Weight: 79.38 kg BSA: 1.85 m2 Heart Rate: bpm BP: 121 / 58 mmHg Director Semiconductor: MIKKI Referring MD: Sonia Anderson NP Symptoms: new heart failure Study Quality: Good Conclusions: - Normal left ventricular cavity size. There is mildly increased left ventricular wall thickness. - There is a 23 mm S3 valve in aortic position. There is no central aortic regurgitation. There is mild paravalvular leak. The gradients across the valve is normal for the valve type. - There is severe mitral annular calcification. There is mild mitral valve regurgitation. There is no mitral valve stenosis. - Moderate pulmonary hypertension is present. Findings Left Ventricle Normal left ventricular cavity size. There is mildly increased left ventricular wall thickness. The left ventricular systolic function is hyperdynamic. The visually estimated ejection fraction is >70%. There is no evidence of regional wall motion abnormalities. Diastolic function is indeterminate on the basis of available data. Right Ventricle Normal right ventricular cavity size and systolic function. Atria The left atrium is moderately dilated. The right atrium is moderately dilated. Aortic Valve There is a 23 mm S3 valve in aortic position. There is no central aortic regurgitation. There is mild paravalvular leak. The gradients across the valve is normal for the valve type. Mitral Valve There is severe mitral annular calcification. There is mild mitral valve regurgitation. There is no mitral valve stenosis. Pulmonic Valve The pulmonic valve is likely normal. Tricuspid Valve Normal tricuspid valve structure and function. There is mild tricuspid valve regurgitation. Normal right atrial pressure. Moderate pulmonary hypertension is present. Great Vessels All visible segments of the aorta are normal in size. The visualized portions of the pulmonary artery and branches are normal. Venous The inferior vena cava is normal in size and collapses greater than 50% with inspiration. Pericardium/Pleural There is no evidence of pericardial effusion. Prior Study Comparison Changes noted compared to prior study dated: 09/03/2018. Previous ECHO was performed at [facility]. Moderate pulmonary hypertension is present with PASP 53 mm Hg. Measurements 2D Linear Measurements IVSd: 1.03 0.6-0.9/0.6-1.0 cm LVIDd: 4.15 3.9-5.3/4.2-5.9 cm LVIDd Index: 2.24 2.4-3.2/2.2-3.1 cm/m2 LVIDs: 2.72 2.0-3.6 cm LVPWd: 1.04 0.7-1.1 cm LA Diam: 4.70 2.7-3.8/3.0-4.0 cm LAIDs Index: 2.54 1.5-2.3 cm/m2 LV Mass: 175.94 67-162/88-224 g LV Mass Index: 95.10 43-95/49-115 g/m2 LVOT Diam: 2.00 3.0+(-)1.3 cm Mitral Valve MV Pk E: 1.07 MV PK A: 1.22 MV Decel Time: 201.00 E/A: 0.90 E'Lateral: 6.74 E'Medial: 4.13 E/E' Med: 25.90 E/E' Lat: 15.90 PHT: 59.00 MVA PHT: 3.73 Decel [place]: 5.34 Aortic Valve AoV Pk Efrain: 2.39 AoV Mn Efrain: 1.60 AoV VTI: 0.53 AoV Pk Grad: 23.00 Aov Mn Grad: 12.00 CHANDANA Cont.VTI: 1.37 LVOT LVOT Pk Efrain: 1.06 LVOT Mn Efrain: 0.75 LVOT VTI: 0.23 LVOT Pk Grad: 4.00 LVOT Mn Grad: 3.00 LVOT Diam: 2.00 LVOT Area: 3.14 Diastolic Function MV Pk E: 1.07 MV Pk A: 1.22 E/A: 0.90 E'Medial: 4.13 E/E' Med: 25.90 E' Laterial: 6.74 E/E' Lat: 15.90 Tricuspid Valve TR Pk Efrain: 3.53 TR Pk Grad: 50.00 RA Press: 3.00 RVSP: 53.00 Great Vessels Aorta Ao Asc: 3.20 2.1-3.4 cm Updated in Other Vendor System with Status of Final Arnie Noel MD electronically signed on 05/19/2020 1:12:57 PM with status of Final
[2020-05-19] MEDS: Enoxaparin Sodium 40 MG/0.4 ML SYRINGE SUBCUT (19:55)
[2020-05-19] MEDS: Azithromycin 500 MG in 0.9 % Sodium Chloride 250 ML 125 MG IV (19:55)
[2020-05-19] MEDS: LORazepam 1 MG TABLET PO (20:20)
[2020-05-20] VITALS: BP 101/52; PULSE 78; RESP 20; TEMP 36.2; O2SAT 96
[2020-05-20 03:33] VITALS: BP 109/53; PULSE 72; RESP 16; TEMP 36.4; O2SAT 95
[2020-05-20] MEDS: Levothyroxine Sodium 100 MCG TABLET PO (05:47)
[2020-05-20 08:00] VITALS: BP 119/55; PULSE 70; RESP 14; TEMP 36.6; O2SAT 96
[2020-05-20] MEDS: 0.9 % Sodium Chloride Flush 3 ML SYRINGE IVFLUSH (08:48)
[2020-05-20 08:49] VITALS: BP 119/55; PULSE 110; PULSE 84
[2020-05-20] MEDS: amLODIPine Besylate 2.5 MG TABLET PO (08:49)
[2020-05-20] MEDS: Metoprolol Succinate ER 50 MG TAB.ER.24H PO (08:49)
[2020-05-20] MEDS: Aspirin 81 MG TAB.CHEW PO (08:49)
[2020-05-20] MEDS: Ezetimibe 10 MG TABLET PO (08:49)
[2020-05-20] MEDS: Sertraline HCL 100 MG TABLET 200 MG PO (08:50)
--- NOTE | 2020-05-20 11:01 | MHC.CM.PN ---
Pt to be d/c home with [facility]. [facility]. Pt to have respiratory evaluation to determine need for home O2. Family to provide transportation.
--- NOTE | 2020-05-20 11:14 | PM.PNCARD ---
Subjective Subjective Date of Service: 05/20/20 Principal diagnosis: SOB, COPD Interval history: Feeling much better. She is on supplemental oxygen via nasal cannula. Review of Systems Review of Systems No new complaints Physical Exam Vital Signs: Last Vital Signs Temp 97.9 F 05/20/20 08:00 Pulse 110 H 05/20/20 08:49 Resp 14 05/20/20 08:00 BP 119/55 L 05/20/20 08:49 Pulse Ox 96 05/20/20 08:00 Body Mass Index 30.0 GENERAL APPEARANCE: in no acute distress, well developed, well nourished. HEENT: unremarkable. HEAD: normocephalic, atraumatic. NECK/THYROID: no carotid bruit, mild JVD SKIN: no suspicious lesions, warm and dry. HEART: no murmurs, regular rate and rhythm, S1, S2 normal. LUNGS: Few crackles at bases ABDOMEN: normal, bowel sounds present, soft, nontender, nondistended. EXTREMITIES: no clubbing, cyanosis, or edema. PERIPHERAL PULSES: equal. NEUROLOGIC: nonfocal, alert and oriented. PSYCH: mood/affect full range. Results Labs and Meds Result diagrams: 05/19/20 05:27 05/19/20 05:27 Progress Note: A&P Assessment and plan (1) Acute exacerbation of chronic obstructive airways disease: Status: Acute Assessment and Plan: 80-year-old female who is presenting with shortness of breath. This is mostly due to COPD exacerbation. She was noticed to have elevated BNP and was started on IV Lasix. On examination she was you euvolemic. She is still on supplemental oxygen. I think she does not require daily diuretics. I think please give her 20 mg of p.o. Lasix script when she goes home and if she had approximately 2 lb of weight gain and she can start taking Lasix. I think her presentation is mostly due to underlying COPD and COPD exacerbation. Echocardiography was reviewed which showed no significant change with the mild paravalvular leak around the TAVR valve which was known before. PA pressures are moderately elevated but that is probably due to hypoxic vasoconstriction in the setting of COPD exacerbation. Signing off for now. Thank you for allowing me to participate in the care of your patient. Please feel free to contact me if you have any questions. Fall Risk Details Current Medications: Current Medications Generic Name Dose Route Start Last Admin Trade Name Freq PRN Reason Stop Dose Admin Acetaminophen 650 mg 05/18/20 18:41 Acetaminophen 325 Mg Tablet PO Q6H PRN Pain, Mild (Pain Scale 1-3) Albuterol Sulfate 2.5 mg 05/19/20 16:00 05/20/20 08:29 Albuterol Sulfate (0.083%) 2.5 Mg/3 Ml Vial.Neb INHALE Not Given RQ4H CHERELLE Amlodipine Besylate 2.5 mg 05/19/20 09:00 05/20/20 08:49 Amlodipine Besylate 2.5 Mg Tablet PO 2.5 mg DAILY CHERELLE Administration Protocol Aspirin 81 mg 05/19/20 09:00 05/20/20 08:49 Aspirin 81 Mg Tab.Chew PO 81 mg DAILY CHERELLE Administration Ezetimibe 10 mg 05/19/20 09:00 05/20/20 08:49 Ezetimibe 10 Mg Tablet PO 10 mg DAILY CHERELLE Administration Enoxaparin Sodium 40 mg 05/18/20 20:00 05/19/20 19:55 Enoxaparin Sodium 40 Mg/0.4 Ml Syringe SUBCUT 40 mg Q24H CHERELLE Administration Furosemide 20 mg 05/20/20 10:35 Furosemide 20 Mg Tablet PO DAILY CHERELLE Protocol Azithromycin 500 mg/ Sodium 250 mls @ 125 mls/hr 05/18/20 20:00 05/19/20 21:55 Chloride IV Infused Q24H CHERELLE Infusion Levothyroxine Sodium 100 mcg 05/19/20 06:30 05/20/20 05:47 Levothyroxine Sodium 100 Mcg Tablet PO 100 mcg DAILY@0630 CHERELLE Administration Lorazepam 1 mg 05/18/20 18:41 05/19/20 20:20 Lorazepam 1 Mg Tablet PO 1 mg BEDTIME PRN Administration Sleep Methylprednisolone Sodium Succinate 40 mg 05/18/20 19:00 05/20/20 08:48 Methylprednisolone Sod Succ/Pf 40 Mg/Ml Vial IVPUSH 40 mg Q12H CHERELLE Administration Metoprolol Succinate 50 mg 05/19/20 09:00 05/20/20 08:49 Metoprolol Succinate Er 50 Mg Tab.Er.24h PO 50 mg DAILY CHERELLE Administration Protocol Ondansetron HCl 4 mg 05/18/20 18:41 Ondansetron Hcl 4 Mg/2 Ml Vial IVPUSH Q8H PRN Nausea and Vomiting Pharmacy Consult 1 each 05/18/20 09:34 Consult Rx Perform Med Rec MISCELLANE ONCE PRN Consult order Sertraline HCl 200 mg 05/19/20 09:00 05/20/20 08:50 Sertraline Hcl 100 Mg Tablet PO 200 mg DAILY CHERELLE Administration Sodium Chloride 3 ml 05/18/20 18:41 05/20/20 08:48 0.9 % Sodium Chloride Flush 3 Ml Syringe IVFLUSH 3 ml QSHIFT CHERELLE Administration Time Spent With Patient Time: Total time spent is greater than 50% in coordination of care (as documented) at patient's floor/unit and/or counseling patient: Time with patient: less than 15 minutes
[2020-05-20 11:50] LABS: Anion Gap 15 (12-20); Blood Urea Nitrogen 29 mg/dL (9-16); Calcium 8.3 mg/dL (8.4-10.2); Carbon Dioxide 35 mmol/L (22-29); Chloride 93 mmol/L (96-108); Creatinine Clr Calc Pharmacy 47.3; Estimated Glomerular Filt Rate 54; Glucose Random 97 mg/dL (60-115); Potassium 4.8 mmol/l (3.3-5.1); Sodium 138 mmol/L (135-145)
[2020-05-20 12:00] VITALS: BP 115/64; PULSE 71; RESP 90; TEMP 36.7; O2SAT 90
[2020-05-20 12:08] LABS: B Type Natriuretic Peptide 578 pg/mL (<100)
[2020-05-20] MEDS: Furosemide 20 MG TABLET PO (12:14)
[2020-05-20 13:35] VITALS: PULSE 148; PULSE 85; PULSE 87; PULSE 92; PULSE 98; O2SAT 88; O2SAT 93; O2SAT 95
--- NOTE | 2020-05-20 14:34 | P.DS_ITS ---
DS: Providers Provider Date of Service: 05/21/20 Date of admission: 05/18/20 13:08 Primary care physician: Renan Stewart MD Consults: 05/18/20 18:41 Consult to Cardiology Routine Consulting Provider: Arnie Noel Reason for consultation: heart failure Has provider been notified: No DS: Diagnosis Discharge Diagnosis (1) Acute exacerbation of chronic obstructive airways disease: Status: Acute DS: Medications Discharge Medications Home Medications: Home Medications Medication Instructions Recorded Confirmed Anoro Ellipta 1 puff INHALATION DAILY 05/18/20 05/18/20 amlodipine 2.5 mg PO DAILY 05/18/20 05/18/20 aspirin 81 mg PO DAILY 05/18/20 05/18/20 calcium carbonate-vitamin D3 1 tab PO DAILY 05/18/20 05/18/20 [Calcium 500 + D] ezetimibe 10 mg PO DAILY 05/18/20 05/18/20 levothyroxine 100 mcg PO DAILY 05/18/20 05/18/20 lorazepam 1 mg PO BEDTIME PRN 05/18/20 05/18/20 metoprolol succinate 50 mg PO DAILY 05/18/20 05/18/20 sertraline 200 mg PO QAM 05/18/20 05/18/20 Previous Rx's Medication Instructions Recorded azithromycin 250 mg PO DAILY 5 Days #5 tab 05/20/20 furosemide [Lasix] 20 mg PO DAILY #30 tab 05/20/20 levalbuterol HCl [Xopenex] 1.25 mg INHALATION Q4-6H PRN #36 ml 05/20/20 nebulizer and compressor #1 ea 05/20/20 prednisone 20 mg PO DAILY #10 tab 05/20/20 DS: Summary Hospital Course Hospital Course: HPI 80 year old women presenting with worsening shortness of breath over the last several days. Mostly with exertion. She has COPD and a history of AVR. She reported That she took a fall on [place]. And since then she has had increased shortness of breath especially with exertion. She denied recent illness, fever, chills, nausea, vomiting, sick contacts. She does not have any history of congestive heart failure. BNP was noted to be elevated at 705. Chest CTA showing bronchiectases. Upon arrival apparently her oxygen saturation was 89% on room air. This did improve with oxygen therapy. In the ER, she was given Solu-Medrol, albuterol, ceftriaxone, doxycycline, IV Lasix. She will be admitted for further management and treatment of acute CHF. Hospital course 80-year-old female admitted with acute hypoxic respiratory failure secondary to COPD exacerbation and CHF exacerbation, patient was started on oxygen supplementation steroid and nebulizer treatment, patient was also started on IV Lasix, echocardiogram was done shows EF greater than 70%, patient was switched to p.o. Lasix, breathing improved, patient continues to require oxygen, patient was evaluated for home oxygen patient qualifies for 3 L of oxygen, patient was stable discharged home on home oxygen, p.o. prednisone and Lasix Time Spent with Patient Time attestation: Total time spent providing and/or coordinating discharge services: Discharge coordination time: Greater than 30 minutes Physical Exam Vital Signs: Vital Signs: Last Vital Signs Temp 98.1 F 05/20/20 12:00 Pulse 71 05/20/20 12:00 Resp 90 H 05/20/20 12:00 BP 115/64 05/20/20 12:00 Pulse Ox 90 L 05/20/20 12:00 Body Mass Index 30.0 DS: Data Data Completed and Pending Labs on day of discharge: Laboratory Tests 05/18/20 05/18/20 05/18/20 09:54 10:25 10:25 WBC 6.7 RBC 4.51 Hgb 12.1 Hct 38.3 MCV 84.9 MCH 26.8 L MCHC 31.6 RDW 14.4 Plt Count 144 L MPV 10.8 Immature Gran % (Auto) 0.3 Neut % (Auto) 82.1 H Lymph % (Auto) 13.4 L [place] % (Auto) 4.2 Eos % (Auto) 0.0 Baso % (Auto) 0.0 Lymph # (Auto) 0.9 L [place] # (Auto) 0.3 Eos # (Auto) 0.0 Baso # (Auto) 0.0 Abs Immat Gran (auto) 0.02 Absolute Neuts (auto) 5.5 Absolute Nucleated RBC 0.000 Nucleated RBC % (auto) 0.0 Smear Tech's Comments PT 12.8 INR 1.1 APTT 30.7 D-Dimer 440 VBG pH VBG pCO2 VBG pO2 VBG HCO3 VBG O2 Saturation VBG Base Excess Sodium Potassium Chloride Carbon Dioxide Anion Gap BUN Creatinine Estim Creat Clear Calc Estimated GFR Random Glucose Lactic Acid Calcium Magnesium Ferritin Total Bilirubin Direct Bilirubin AST ALT Alkaline Phosphatase Lactate Dehydrogenase Troponin I High Sens B-Natriuretic Peptide Total Protein Albumin Lipase Procalcitonin Coronavirus (PCR) NEGATIVE Influenza Type A (PCR) NEGATIVE Influenza Type B (PCR) NEGATIVE RSV RNA Qual (PCR) NEGATIVE 05/18/20 05/18/20 05/18/20 10:25 10:25 10:25 WBC RBC Hgb Hct MCV MCH MCHC RDW Plt Count MPV Immature Gran % (Auto) Neut % (Auto) Lymph % (Auto) [place] % (Auto) Eos % (Auto) Baso % (Auto) Lymph # (Auto) [place] # (Auto) Eos # (Auto) Baso # (Auto) Abs Immat Gran (auto) Absolute Neuts (auto) Absolute Nucleated RBC Nucleated RBC % (auto) Smear Tech's Comments PT INR APTT D-Dimer VBG pH VBG pCO2 VBG pO2 VBG HCO3 VBG O2 Saturation VBG Base Excess Sodium 140 Potassium 4.0 Chloride 96 Carbon Dioxide 34 H Anion Gap 14 BUN 19 H Creatinine 1.05 Estim Creat Clear Calc 45.0 Estimated GFR 51 Random Glucose 122 H Lactic Acid 1.0 Calcium 8.4 Magnesium 2.0 Ferritin 94 Total Bilirubin 0.6 Direct Bilirubin 0.2 AST 12 ALT 8 Alkaline Phosphatase 66 Lactate Dehydrogenase 197 Troponin I High Sens 24.2 H B-Natriuretic Peptide 705 H Total Protein 6.5 Albumin 3.9 Lipase 21 Procalcitonin Coronavirus (PCR) Influenza Type A (PCR) Influenza Type B (PCR) RSV RNA Qual (PCR) 05/18/20 05/18/20 05/19/20 10:25 10:25 05:27 WBC 7.5 RBC 4.39 Hgb 11.8 L Hct 37.3 MCV 85.0 MCH 26.9 L MCHC 31.6 RDW 14.2 Plt Count 154 L MPV 10.6 Immature Gran % (Auto) 0.8 H Neut % (Auto) 89.6 H Lymph % (Auto) 6.5 L [place] % (Auto) 3.1 Eos % (Auto) 0.0 Baso % (Auto) 0.0 Lymph # (Auto) 0.5 L [place] # (Auto) 0.2 Eos # (Auto) 0.0 Baso # (Auto) 0.0 Abs Immat Gran (auto) 0.06 H Absolute Neuts (auto) 6.7 Absolute Nucleated RBC 0.000 Nucleated RBC % (auto) 0.0 Smear Tech's Comments VERIFIED PT INR APTT D-Dimer VBG pH 7.32 VBG pCO2 65 VBG pO2 84 VBG HCO3 33 VBG O2 Saturation 96.0 VBG Base Excess 5.1 Sodium Potassium Chloride Carbon Dioxide Anion Gap BUN Creatinine Estim Creat Clear Calc Estimated GFR Random Glucose Lactic Acid Calcium Magnesium Ferritin Total Bilirubin Direct Bilirubin AST ALT Alkaline Phosphatase Lactate Dehydrogenase Troponin I High Sens B-Natriuretic Peptide Total Protein Albumin Lipase Procalcitonin 0.04 Coronavirus (PCR) Influenza Type A (PCR) Influenza Type B (PCR) RSV RNA Qual (PCR) 05/19/20 05/20/20 05/20/20 05:27 11:14 11:14 WBC RBC Hgb Hct MCV MCH MCHC RDW Plt Count MPV Immature Gran % (Auto) Neut % (Auto) Lymph % (Auto) [place] % (Auto) Eos % (Auto) Baso % (Auto) Lymph # (Auto) [place] # (Auto) Eos # (Auto) Baso # (Auto) Abs Immat Gran (auto) Absolute Neuts (auto) Absolute Nucleated RBC Nucleated RBC % (auto) Smear Tech's Comments PT INR APTT D-Dimer VBG pH VBG pCO2 VBG pO2 VBG HCO3 VBG O2 Saturation VBG Base Excess Sodium 139 138 Potassium 4.7 4.8 Chloride 96 93 L Carbon Dioxide 34 H 35 H Anion Gap 14 15 BUN 23 H 29 H Creatinine 1.02 1.00 Estim Creat Clear Calc 46.3 47.3 Estimated GFR 52 54 Random Glucose 117 H 97 Lactic Acid Calcium 8.1 L 8.3 L Magnesium Ferritin Total Bilirubin Direct Bilirubin AST ALT Alkaline Phosphatase Lactate Dehydrogenase Troponin I High Sens B-Natriuretic Peptide 578 H Total Protein Albumin Lipase Procalcitonin Coronavirus (PCR) Influenza Type A (PCR) Influenza Type B (PCR) RSV RNA Qual (PCR) Preliminary micro results at discharge 05/18/20 10:39 Blood Culture - Preliminary Blood - Venous No growth after 48 hours. 05/18/20 10:24 Blood Culture - Preliminary Blood - Venous No growth after 48 hours. Discharge Plan Discharge Anticipated Discharge Date/Time: 05/20/20 10:48 Patient Disposition: Home Health Service Referrals: [facility] [Outside] (Referal to [facility]. [facility] Renan Stewart MD [Primary Care Provider] - Discharge Medications: New azithromycin 250 mg tablet 250 mg PO DAILY 5 Days Qty: 5 RF: 0 prednisone 20 mg tablet 20 mg PO DAILY Qty: 10 RF: 0 (DME) nebulizer and compressor Device See Rx Instructions .ROUTE .MEDSUPPLY Qty: 1 RF: 0 levalbuterol HCl [Xopenex] 1.25 mg/3 mL solution for nebulization 1.25 mg inhalation Q4-6H PRN (Reason: shortness of breath or wheezing) Qty: 3 6 RF: 0 furosemide [Lasix] 20 mg tablet 20 mg PO DAILY Qty: 30 RF: 0 Continued metoprolol succinate 50 mg tablet extended release 24 hr 50 mg PO DAILY RF: 0 sertraline 100 mg tablet 200 mg PO QAM RF: 0 amlodipine 2.5 mg tablet 2.5 mg PO DAILY RF: 0 levothyroxine 100 mcg tablet 100 mcg PO DAILY RF: 0 lorazepam 1 mg tablet 1 mg PO BEDTIME PRN (Reason: Sleep) RF: 0 ezetimibe 10 mg tablet 10 mg PO DAILY RF: 0 Anoro Ellipta 62.5-25 mcg/actuation blister with device 1 puff inhalation DAILY RF: 0 aspirin 81 mg Tablet,Chewable 81 mg PO DAILY RF: 0 calcium carbonate-vitamin D3 [Calcium 500 + D] 500 mg(1,250mg) -400 unit Tablet,Chewable 1 tab PO DAILY RF: 0 Discharge Orders: Discharge Order (Routine); Ordered 05/20/20 Ordered By: Renato Kc Diet: advance to usual diet Activity on Discharge: As tolerated Stand Alone Forms: Work/School Release Discharge Date/Time: 05/20/20 15:20 Visit Report Forms: Patient Portal Discharge page Care Plan Goals: prevent hosputalization Health Concerns: copd Plan of Treatment: see above
== END 2020-05-20 15:20 | disposition home health service (06) | DRG 190 ==
LOC: HO.ED 13:57 → HO.ICU 18:24
PROVIDERS: Nurse Practitioner Acute Care; Admitting Provider Internal Medicine; Emergency Provider Emergency Medicine; PCP Internal Medicine; Visit Provider Internal Medicine
DX: J44.0 Chronic obstructive pulmonary disease with (acute) lower respiratory infection (principal); J96.01 Acute respiratory failure with hypoxia; J44.1 Chronic obstructive pulmonary disease with (acute) exacerbation; J20.9 Acute bronchitis, unspecified; F32.9 Major depressive disorder, single episode, unspecified; F41.9 Anxiety disorder, unspecified; E03.9 Hypothyroidism, unspecified; I11.0 Hypertensive heart disease with heart failure; I50.9 Heart failure, unspecified; Z95.2 Presence of prosthetic heart valve; Z20.828 Contact with and (suspected) exposure to other viral communicable diseases; Z87.891 Personal history of nicotine dependence; Z79.82 Long term (current) use of aspirin; Z79.890 Hormone replacement therapy; Z79.899 Other long term (current) drug therapy
CPT/HCPCS: 0241U; 36415; 71045; 71275; 80048; 80076; 82728; 82803; 83605; 83615; 83690; 83735; 83880; 84145; 84484; 85025; 85379; 85610; 85730; 87040; 93005; 93306; 94640; 96365; 96367; 96375; 99285; J0456; J0696; J1650; J1940; J2920; J2930; Q9967